=== PATIENT | female | born 1935 | race Caucasian/White ===

== ENCOUNTER → 2016-11-26 | Outpatient (CLI) | payer OTHER, MEDICARE ==
--- NOTE | 2016-11-26 14:02 | DX ---
Left Hip Technique: AP pelvis and frog-leg left hip. Clinical Indications: Pain in left hip and buttock, no known trauma, M25.552, M89.8X8 Comparison: None Findings: Projecting over the lower left femoral head are findings that may represent 2 ossicles of o steochondromatosis. The femoral head is well rounded and normally located in the acetabulum which is normal in width. There is a small degenerative cyst in the lateral left acetabulum. There is mild deg enerative change of the pubic symphysis. There is been previous laminar surgery between L3 and L5. Th e lumbar spine is tilted toward the patient's right. There is bilateral pelvic vascular calcification . No fracture is identified. No evidence of avascular necrosis. There is hypertrophic change of bila teral iliac crests, lateral greater trochanters and initial tuberosities suggesting the possibility o f DISH. There is no soft tissue calcification or ossification lateral to the left femur. Impression: 1. 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 If clinically indicated 3T hip MRI might be helpful. 2. 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 Post lumbar decompressive surgery. Might the patient symptoms be referred from the lumbar spine?
== END ==
LOC: FIMAGING 09:44
PROVIDERS: ATTEND Internal Medicine
DX: R93.7 Abnormal findings on diagnostic imaging of other parts of musculoskeletal system (principal); M25.552 Pain in left hip

== ENCOUNTER → 2017-08-26 | Outpatient (CLI) | payer OTHER, MEDICARE | LOC: FIMAGING 14:32 | PROVIDERS: ATTEND Internal Medicine | DX: Z12.31 Encounter for screening mammogram for malignant neoplasm of breast (principal) | CPT/HCPCS: G0202 ==

== ENCOUNTER → 2018-09-16 | Outpatient (CLI) | payer OTHER, MEDICARE | LOC: FIMAGING 10:45 | PROVIDERS: ATTEND Internal Medicine | DX: Z12.31 Encounter for screening mammogram for malignant neoplasm of breast (principal) ==

== ENCOUNTER → 2019-02-22 | Outpatient (CLI) | payer OTHER, MEDICARE | LOC: FIMAGING 14:41 | PROVIDERS: ATTEND Psychiatry & Neurology Neurology | DX: M51.36 Other intervertebral disc degeneration, lumbar region (principal); M48.061 Spinal stenosis, lumbar region without neurogenic claudication; M99.73 Connective tissue and disc stenosis of intervertebral foramina of lumbar region ==

== ENCOUNTER → 2019-03-10 | Outpatient (CLI) | payer OTHER, MEDICARE | LOC: FIMAGING 14:00 | PROVIDERS: ATTEND Physical Medicine & Rehabilitation Neuromuscular Medicine | DX: M51.36 Other intervertebral disc degeneration, lumbar region (principal) ==